=== PATIENT | female | born 1950 | race Caucasian/White ===

== ENCOUNTER 2021-11-15 08:06 | Day surgery (SDC) | payer OTHER ==
[~2021-11-15] VITALS: Ht 150 cm; Wt 65.8 kg
[2021-11-15] MEDS ORDERED: MEPERIDINE 100 MG INJ. 100 MG/ML VIAL ONE (10:22)
[2021-11-15] MEDS ORDERED: MIDAZOLAM HCL 5 MG/5 ML VIAL ONE (10:23)
[2021-11-15] MEDS ORDERED: ONDANSETRON HCL 4 MG/2 ML VIAL ONE (11:34)
[2021-11-15] MEDS ORDERED: ONDANSETRON HCL 4 MG/2 ML VIAL IVP ONE (11:45)
[2021-11-15 13:08] VITALS: BP_SYST 134
== END 2021-11-15 12:10 | disposition home or self-care (01) ==
LOC: SGI 08:06 → SMU 08:07 → SGI 12:10
PROVIDERS: ATTEND Internal Medicine Gastroenterology
DX: D50.9 Iron deficiency anemia, unspecified (principal); K29.50 Unspecified chronic gastritis without bleeding; K57.30 Diverticulosis of large intestine without perforation or abscess without bleeding; K64.8 Other hemorrhoids; K44.9 Diaphragmatic hernia without obstruction or gangrene; Z79.899 Other long term (current) drug therapy; Z20.822 Contact with and (suspected) exposure to COVID-19
CPT/HCPCS: 36415 ×2; 43239; 45378; 87081; 87426; 88305; 88312; 88313; 99152; 99153; G0378; J2175; J2250; J2405

== ENCOUNTER 2024-01-01 13:42 | Outpatient (CLI) | payer OTHER | END 2024-01-01 18:49 | disposition home or self-care (01) | LOC: SMA 13:42 | PROVIDERS: ATTEND Internal Medicine | DX: Z12.31 Encounter for screening mammogram for malignant neoplasm of breast (principal) | CPT/HCPCS: 77067 ==